=== PATIENT | female | born 1980 | race Hispanic/Latino ===

== ENCOUNTER 2024-11-18 08:59 | Outpatient (CLI) | payer OTHER | END 2024-11-18 09:00 | disposition home or self-care (01) | LOC: BICMAMMO 08:59 | PROVIDERS: ATTEND Nurse Practitioner Family | DX: N63.11 Unspecified lump in the right breast, upper outer quadrant (principal) | CPT/HCPCS: G0279 ==

== ENCOUNTER 2024-11-21 12:07 | Emergency (ER) | payer OTHER | END 2024-11-21 15:37 | disposition home or self-care (01) | LOC: ERS 12:07 | DX: R10.13 Epigastric pain (principal) | CPT/HCPCS: 76705 ==